=== PATIENT | female | born 1980 | race African-American/Black ===

== ENCOUNTER 2017-03-07 09:24 | Emergency (ER) | payer BC ==
--- NOTE | ~2017-03-07 | CR126 ---
[facility] A Service of [facility] & [facility] RADIOLOGY TEXT RESULTS PATIENT: FIGUEROA WEATHERS LOCATION: [facility] : 82 UNIT #: [id number] AGE: [address]: Tessie Max SEX: F ORDER DR: [id number] [facility] [address] [place], [place] [address] [id number] E MR#: [id number] Acc #: [id number] NAME: FIGUEROA WEATHERS. : 1980 SEX: F STUDY DATE/TIME: 03/07/2017 8:48 UNIT: [facility] ROOM: STUDY DESCRIPTION: CR Foot Complete Min 3 View Lt Attending Physician: Tessie Max Pa-C Ordering Physician: Tessie Max Pa-C MEDICAL IMAGING REPORT This report is preliminary unless electronic signature is present EXAM Left foot 03/07/2017 INDICATION 36-year-old female with history of trauma, pain in the left foot and third and fourth toes since yesterday after a fall. TECHNIQUE 3 views of the left foot. There are no comparisons. FINDINGS There is a complete partially comminuted essentially nondisplaced fracture of the proximal phalanx fourth digit. There is interarticular extension of the fracture to the PIP joint. There is also a fracture of the base of the proximal phalanx fifth digit with interarticular extension. IMPRESSION 1. Comminuted interarticular fracture involving the proximal phalanx fourth digit. The interarticular extension occurs at the PIP joint. 2. There is also a fracture of the base of the proximal phalanx fifth digit along its medial aspect with interarticular extension to the MTP joint. STAT * RESULT Dictated by... Manuel De La Fuente M.D. THIS IS AN ELECTRONICALLY VERIFIED REPORT Manuel De La Fuente M.D. at 03/07/2017 4:58 PM MIKEY/laya [facility] A Service of [facility] & [facility] RADIOLOGY TEXT RESULTS PATIENT: FIGUEROA WEATHERS LOCATION: [facility] : [birth year] UNIT #: [id number] AGE: [address]: Tessie Max SEX: F ORDER DR: TD: 03/07/2017 09:35 JOB #: [id number] MEDICAL IMAGING REPORT Page 1 of 1 COPY
[~2017-03-07 09:24] MED LIST: MEDROL PO; NORCO 5/325 TAB1 TAB PO; VICODIN 5/500 T1 TAB PO; ZITHROMAX PO
== END 2017-03-07 09:53 | disposition home or self-care (01) ==
LOC: CFTX 09:24
DX: S92.512A Displaced fracture of proximal phalanx of left lesser toe(s), initial encounter for closed fracture (principal); F17.210 Nicotine dependence, cigarettes, uncomplicated; W18.2XXA Fall in (into) shower or empty bathtub, initial encounter; Y92.009 Unspecified place in unspecified non-institutional (private) residence as the place of occurrence of the external cause
CPT/HCPCS: 29405; 73630; 84703; 99283

== ENCOUNTER 2017-03-20 10:39 | Emergency (ER) | payer BC ==
--- NOTE | ~2017-03-20 | CR63 ---
[facility] A Service of [facility] & [facility] RADIOLOGY TEXT RESULTS PATIENT: FIGUEROA WEATHERS LOCATION: [facility] : 82 UNIT #: [id number] AGE: [address]: Tyesha Melgoza APRN SEX: F ORDER DR: [id number] [facility] [address] [place], [place] [address] [id number] E MR#: [id number] Acc #: [id number] NAME: FIGUEROA WEATHERS. : 1980 SEX: F STUDY DATE/TIME: 03/20/2017 11:37 UNIT: [facility] ROOM: STUDY DESCRIPTION: CR Chest 2 View Attending Physician: Tyesha Melgoza A.P.R.N. Ordering Physician: Ed Lawson Sharpe M.D. Primary [facility] Physician[facility] MEDICAL IMAGING REPORT This report is preliminary unless electronic signature is present EXAM PA and lateral chest INDICATION Fever, cough, congestion, weakness and chest pain since yesterday. No comparisons are available. FINDINGS Granulomatous calcifications on the left. No airspace consolidation. Heart size normal. The visualized osseous structures are unremarkable. IMPRESSION No active disease. Dictated by... Juan M Gooden M.D. THIS IS AN ELECTRONICALLY VERIFIED REPORT Juan M Gooden M.D. at 03/21/2017 2:21 PM MARITZA/zuleyma TD: 03/21/2017 00:55 JOB #: [id number] MEDICAL IMAGING REPORT Page 1 of 1 COPY
[2017-03-20 11:40] LABS: INFLUENZA A NEG (NEG); INFLUENZA B NEG (NEG)
== END 2017-03-20 13:15 | disposition home or self-care (01) ==
LOC: CFTX 10:39 → CED 10:39 → CFTX 11:33
PROVIDERS: Nurse Practitioner
DX: J11.1 Influenza due to unidentified influenza virus with other respiratory manifestations (principal); J20.9 Acute bronchitis, unspecified; F17.210 Nicotine dependence, cigarettes, uncomplicated; Z90.710 Acquired absence of both cervix and uterus; Z98.51 Tubal ligation status; Z88.0 Allergy status to penicillin
CPT/HCPCS: 71020; 87651; 87804; 99283